=== PATIENT | male | born 1965 | race Caucasian/White ===

== ENCOUNTER 2021-05-05 11:10 | Outpatient (REF) | payer OTHER, SELFPAY ==
[2021-05-05 12:53] LABS: COVID-19 Test Negative (Negative); IDNOW Serial# 16C4AD1C
== END 2021-05-05 11:11 | disposition home or self-care (01) ==
LOC: HO.LAB 11:10
PROVIDERS: Visit Provider Internal Medicine
DX: Z20.822 Contact with and (suspected) exposure to COVID-19 (principal)
CPT/HCPCS: 36415; 87635; C9803